=== PATIENT | male | born 1975 | race Caucasian/White ===

== ENCOUNTER 2017-03-29 18:06 | Observation (INO) ==
[2017-03-29 18:55] LABS: Basophils # 0.1 K/mcL (0.0-0.2); Basophils % 0.6 %; Hematocrit 52.1 % (37.5-50.1); Hemoglobin 17.1 g/dL (12.9-16.9); Immature Granulocytes % 0.3 % (0-4); Lymphocytes # 2.1 K/mcL (0.6-4.6); Lymphocytes % 22.8 %; Mean Corpuscular HGB Conc 32.8 g/dL (31.6-35.5); Mean Corpuscular Volume 82.2 fL (83.0-100.0); Mean Platelet Volume 9.9 fL (9.4-12.4); Monocytes # 0.5 K/mcL (0.0-1.3); Monocytes % 5.1 %; Neutrophils # 6.6 K/mcL (1.6-8.9); Platelet Count 260 K/mcL (140-400); Red Blood Count 6.34 M/mcL (4.19-5.50); Red Cell Distribution Width 13.7 % (11.5-14.5); Segmented Neutrophils % 71.2 %
[2017-03-29 19:07] LABS: Bilirubin,Urine Negative (Negative); Blood,Urine Moderate (Negative); Color,Urine Yellow (Yellow); Glucose,Urine (UA) 100 mg/dL (Normal); Ketones,Urine Negative (Negative); Leukocyte Esterase,Urine Negative (Negative); Nitrite,Urine Negative (Negative); Protein,Urine >=1000 mg/dL (Neg-Trace); Specific Gravity,Urine 1.026 (1.010-1.025); Urobilinogen,Urine Normal (Normal)
[2017-03-29 19:08] LABS: Bacteria,Urine None Seen per hpf (None-Few); Hyaline Casts,Urine None Seen per lpf (None-Few); Squamous Epithelial Cell,Urine Many per lpf (None-Few)
[2017-03-29 19:08] LABS: BUN/Creatinine Ratio 14 (6-26); Blood Urea Nitrogen 17 mg/dL (8-26); Calcium 9.5 mg/dL (8.6-10.8); Carbon Dioxide 23 mEq/L (19-29); Chloride 107 mEq/L (98-109); Glucose 137 mg/dL (70-99); Osmolality,Calculated 292 (280-300); Sodium 139 mEq/L (136-145); eGFR For African Americans > 60 (> 60); eGFR For Non-African Americans > 60 (> 60)
[2017-03-29 19:09] LABS: Acetaminophen < 1.0 mcg/mL (10-30); Ethanol < 10 mg/dL (0-10); Salicylate < 5.0 mg/dL (15-30)
[2017-03-29 19:10] LABS: Clarity,Urine Slightly Hazy (Clear)
[2017-03-29 19:15] LABS: Amphetamine Screen,Urine Negative ng/mL (Cutoff=1000); Barbiturate Screen,Urine Negative ng/mL (Cutoff=200); Benzodiazepines Screen,Urine Negative ng/mL (Cutoff=200); Cannabinoid Screen,Urine Negative ng/mL (Cutoff = 50); Cocaine Screen,Urine Negative ng/mL (Cutoff= 300); Opiate Screen,Urine Negative ng/mL (Cutoff=300); Phencyclidine Screen,Urine Negative ng/mL (Cutoff=25)
--- NOTE | 2017-03-29 19:17 | Emergency Department Note ---
Disposition Clinical Impression: Suicidal ideation Depression Qualifiers: Depression Type: unspecified Qualified Code(s): F32.9 - Major depressive disorder, single episode, unspecified Disposition: Admitted As Inpatient Condition: Fair Time of Disposition: 01:54 Psych HPI - General Chief Complaint: ED Psychiatric Symptoms Stated Complaint: SI Time Seen by Provider: 03/29/17 18:36 Source: patient Nursing Notes Reviewed: Yes Vital Signs Reviewed: Yes - History of Present Illness HPI Narrative: 41-year-old male complains of deficits suicide. He states earlier today he was arguing with his and afterwards took a pocket knife to his neck. He mentions a history of bipolar and depression admits to not taking his medications for this. He sees a mental health provider at [place]. He denies any auditory or visual hallucinations, or homicidal ideations. - Related Data Home Medications Medication Instructions Recorded Confirmed Albuterol Neb [AccuNeb] 1.25 mg IH PRN PRN 07/21/15 03/29/17 Albuterol Sulfate [Ventolin Hfa] 18 gm IH PRN PRN 07/21/15 03/29/17 Beclomethasone Diprop 40mcg [Qvar 2 puff IH BID 07/21/15 03/29/17 40 mcg] Folic Acid 1 mg PO DAILY 07/21/15 03/29/17 Lisinopril [Zestril] 40 mg PO DAILY 07/21/15 03/29/17 Loratadine [Claritin] 10 mg PO DAILY 07/21/15 03/29/17 Acetaminophen [Tylenol] 325 mg PO TID 04/12/16 03/29/17 Amitriptyline HCl 200 mg PO HS 04/12/16 03/29/17 Doxycycline 100 mg PO DAILY 04/12/16 03/29/17 Insulin ASPART [Novolog Flexpen] 0 unit SQ ACHS 04/12/16 03/29/17 Insulin Glargine,Hum.rec.anlog 60 unit SQ HS 04/12/16 03/29/17 [Lantus Solostar] Methocarbamol [Robaxin] 500 mg PO BID PRN 04/12/16 03/29/17 Metoprolol [Lopressor] 50 mg PO BID 04/12/16 03/29/17 Mycophenolate Mofetil [Cellcept] 1,000 mg PO TID 04/12/16 03/29/17 OxyCODONE/APAP 10/325 [Percocet 1 each PO QID PRN 04/12/16 03/29/17 10/325 MG] traMADol [Ultram] 50 - 100 mg PO TID PRN 04/12/16 03/29/17 Cholecalciferol (Vitamin D3) 1,000 unit PO DAILY 03/29/17 03/29/17 [Vitamin D3] Divalproex Sodium [Depakote] 500 mg PO BID 03/29/17 03/29/17 Fluticasone Propionate Nasal 2 spray NS DAILY 03/29/17 03/29/17 [Flonase] Furosemide [Lasix] 20 mg PO BID PRN 03/29/17 03/29/17 Lovastatin 80 mg PO HS 03/29/17 03/29/17 Sertraline [Zoloft] 100 mg PO DAILY 03/29/17 03/29/17 SitaGLIPtin [Januvia] 100 mg PO DAILY 03/29/17 03/29/17 Sulfamethoxazole/Trimeth DS 1 tab PO MOWEFR 03/29/17 03/29/17 [Bactrim DS] Trazodone HCl 100 - 200 mg PO HS 03/29/17 03/29/17 hydrOXYzine pamoate [Hydroxyzine 25 mg PO BID 03/29/17 03/29/17 Pamoate] Allergies Allergy/AdvReac Type Severity Reaction Status Date / Time No Known Allergies Allergy Verified 12/24/16 01:27 All systems ED: reviewed and negative except as stated. Constitutional: Denies: fever, chills Eyes: Denies: eye pain ENT ED: Denies: ear pain Cardiovascular: Denies: chest pain Respiratory: Denies: dyspnea Gastrointestinal: Denies: abdominal pain Genitourinary: Denies: dysuria Musculoskeletal: Denies: back pain Integumentary: Denies: rash Neurological: Denies: headache Psychiatric: Reports: as per HPI, depression, suicidal thoughts. Denies: homicidal thoughts, auditory hallucinations, visual hallucinations Endocrine: Denies: fatigue Hematological/Lymphatic: Denies: easy bleeding Allergic/Immunologic: Denies: facial swelling Past Medical History - Past Medical History Medical history: Reports: arthritis, CHF, diabetes, hypertension Surgical history: Reports: appendectomy Psychiatric history: Reports: anxiety, depression - Social History Smoking Status: Never smoker Smokeless Tobacco Status: Yes Alcohol use: Reports: none Drug use: Reports: none Physical Exam - General Limitations: no limitations General appearance: alert, in no apparent distress - Head Head exam: normocephalic - Eye Eye exam: Present: EOMI - Neck Neck exam: Present: full ROM - Chest Chest inspection: Present: symmetric chest wall rise - Respiratory Respiratory exam: Absent: respiratory distress - Cardiovascular Cardiovascular exam: Present: regular rate, normal rhythm - Abdominal Exam Abdominal exam: Present: soft, Non-Tender - Extremities Exam Extremities exam: Present: normal inspection, full ROM - Back Exam Back exam: Present: normal inspection, full ROM - Neurological Exam Neurological exam: Present: alert, oriented X3 - Psychiatric Psychiatric exam: Present: normal affect, normal mood - Skin Skin exam: Present: warm, dry, intact, normal color. Absent: rash, cyanosis, diaphoresis Course Course Narrative: 41-year-old male presents after suicide attempt that occurred just prior to his arrival.. On examination he is in no acute distress. Nontoxic. He does have some dried blood on his anterior neck however no active bleeding or visible lacerations are seen. Does have a history of bipolar and depression. He currently denies suicidal ideation. He admits to being noncompliant with his medications. He mentions a history of CHF, diabetes, heart disease. Denies any chest pain, shortness of breath, recent illness. Workup initiated for 1A evaluation. - Reevaluation(s) Reevaluation #1: Patient was medically cleared and evaluated by behavioral health staff. I did discuss patient with 1A nurse Deyanira who had talked to on-call psychiatrist Dr. Lester. Patient will be admitted to 1A service for observation. Patient was agreeable to this. Patient has been pink slipped. Vital stable. Time: 01:54 Vital Signs Temperature 98 F 03/29/17 18:11 Pulse Rate 117 03/29/17 18:11 Respiratory Rate 18 03/29/17 18:11 Blood Pressure 189/106 03/29/17 18:11 O2 Sat by Pulse Oximetry 95 03/29/17 18:11 Temperature 97.8 F 03/30/17 20:09 Pulse Rate 80 03/30/17 20:09 Respiratory Rate 16 03/30/17 20:09 Blood Pressure 152/86 03/30/17 20:09 O2 Sat by Pulse Oximetry 95 03/29/17 18:11 Oxygen Delivery Oxygen Delivery Room Air Psych - Lab Data Result diagrams: 03/29/17 18:48 03/29/17 18:48 Lab Results 03/29/17 03/29/17 03/29/17 Range/Units 18:48 18:48 18:55 WBC 9.3 (4.3-11.1) K/mcL RBC 6.34 H (4.19-5.50) M/mcL Hgb 17.1 H (12.9-16.9) g/dL Hct 52.1 H (37.5-50.1) % MCV 82.2 L (83.0-100.0) fL MCH 27.0 L (28.0-33.3) pg MCHC 32.8 (31.6-35.5) g/dL RDW 13.7 (11.5-14.5) % Plt Count 260 (140-400) K/mcL MPV 9.9 (9.4-12.4) fL Immature Gran % 0.3 (0-4) % Seg Neutrophils % 71.2 % Lymphocytes % 22.8 % Monocytes % 5.1 % Eosinophils % 0.0 % Basophils % 0.6 % Neutrophils # 6.6 (1.6-8.9) K/mcL Lymphocytes # 2.1 (0.6-4.6) K/mcL Monocytes # 0.5 (0.0-1.3) K/mcL Eosinophils # 0.0 (0.0-0.6) K/mcL Basophils # 0.1 (0.0-0.2) K/mcL Sodium 139 (136-145) mEq/L Potassium 4.0 (3.5-4.5) mEq/L Chloride 107 (98-109) mEq/L Carbon Dioxide 23 (19-29) mEq/L BUN 17 (8-26) mg/dL Creatinine 1.22 (0.72-1.25) mg/dL Est GFR ( Amer) > 60 (> 60) Est GFR (Non-Af Amer) > 60 (> 60) BUN/Creatinine Ratio 14 (6-26) Glucose 137 H (70-99) mg/dL Calculated Osmolality 292 (280-300) Calcium 9.5 (8.6-10.8) mg/dL Urine Color Yellow (Yellow) Urine Clarity Slightly Hazy (Clear) Urine pH 6.0 (5.0-8.0) pH Units Ur Specific [place] 1.026 H (1.010-1.025) Urine Protein >=1000 H (Neg-Trace) mg/dL Urine Glucose (UA) 100 H (Normal) mg/dL Urine Ketones Negative (Negative) mg/dL Urine Blood Moderate H (Negative) Urine Nitrite Negative (Negative) Urine Bilirubin Negative (Negative) Urine Urobilinogen Normal (Normal) mg/dL Ur Leukocyte Esterase Negative (Negative) Urine Microscopic RBC 5-15 H (0-3) per hpf Urine Microscopic WBC 5-15 H (0-3) per hpf Ur Squamous Epith Cells Many H (None-Few) per lpf Urine Bacteria None Seen (None-Few) per hpf Hyaline Casts None Seen (None-Few) per lpf Salicylates < 5.0 L (15-30) mg/dL Urine Opiates Screen (Phsvsz=095) ng/mL Acetaminophen < 1.0 L (10-30) mcg/mL Ur Barbiturates Screen (Bzahpj=041) ng/mL Valproic Acid < 2.00 L (50-100) mcg/mL Ur Phencyclidine Scrn (Cutoff=25) ng/mL Ur Amphetamines Screen (Kmloge=9155) ng/mL U Benzodiazepines Scrn (Lqepbm=573) ng/mL Urine Cocaine Screen (Cutoff= 300) ng/mL U Marijuana (THC) Screen (Cutoff = 50) ng/mL Ethyl Alcohol < 10 (0-10) mg/dL 03/29/17 Range/Units 18:55 WBC (4.3-11.1) K/mcL RBC (4.19-5.50) M/mcL Hgb (12.9-16.9) g/dL Hct (37.5-50.1) % MCV (83.0-100.0) fL MCH (28.0-33.3) pg MCHC (31.6-35.5) g/dL RDW (11.5-14.5) % Plt Count (140-400) K/mcL MPV (9.4-12.4) fL Immature Gran % (0-4) % Seg Neutrophils % % Lymphocytes % % Monocytes % % Eosinophils % % Basophils % % Neutrophils # (1.6-8.9) K/mcL Lymphocytes # (0.6-4.6) K/mcL Monocytes # (0.0-1.3) K/mcL Eosinophils # (0.0-0.6) K/mcL Basophils # (0.0-0.2) K/mcL Sodium (136-145) mEq/L Potassium (3.5-4.5) mEq/L Chloride (98-109) mEq/L Carbon Dioxide (19-29) mEq/L BUN (8-26) mg/dL Creatinine (0.72-1.25) mg/dL Est GFR ( Amer) (> 60) Est GFR (Non-Af Amer) (> 60) BUN/Creatinine Ratio (6-26) Glucose (70-99) mg/dL Calculated Osmolality (280-300) Calcium (8.6-10.8) mg/dL Urine Color (Yellow) Urine Clarity (Clear) Urine pH (5.0-8.0) pH Units Ur Specific [place] (1.010-1.025) Urine Protein (Neg-Trace) mg/dL Urine Glucose (UA) (Normal) mg/dL Urine Ketones (Negative) mg/dL Urine Blood (Negative) Urine Nitrite (Negative) Urine Bilirubin (Negative) Urine Urobilinogen (Normal) mg/dL Ur Leukocyte Esterase (Negative) Urine Microscopic RBC (0-3) per hpf Urine Microscopic WBC (0-3) per hpf Ur Squamous Epith Cells (None-Few) per lpf Urine Bacteria (None-Few) per hpf Hyaline Casts (None-Few) per lpf Salicylates (15-30) mg/dL Urine Opiates Screen Negative (Uomlql=916) ng/mL Acetaminophen (10-30) mcg/mL Ur Barbiturates Screen Negative (Avmlyl=289) ng/mL Valproic Acid (50-100) mcg/mL Ur Phencyclidine Scrn Negative (Cutoff=25) ng/mL Ur Amphetamines Screen Negative (Tvymhr=1390) ng/mL U Benzodiazepines Scrn Negative (Vvlwap=843) ng/mL Urine Cocaine Screen Negative (Cutoff= 300) ng/mL U Marijuana (THC) Screen Negative (Cutoff = 50) ng/mL Ethyl Alcohol (0-10) mg/dL Psychiatric Medical Clearance - Medical Clearance Checklist Medical History: No Social History Section defined Current Vitals: Last Vital Signs Temp 97.8 F 03/30/17 20:09 Pulse 80 03/30/17 20:09 Resp 16 03/30/17 20:09 BP 152/86 03/30/17 20:09 Pulse Ox 95 03/29/17 18:11 Abnormal Labs: Abnormal lab results RBC 6.34 M/mcL (4.19-5.50) H 03/29/17 18:48 Hgb 17.1 g/dL (12.9-16.9) H 03/29/17 18:48 Hct 52.1 % (37.5-50.1) H 03/29/17 18:48 MCV 82.2 fL (83.0-100.0) L 03/29/17 18:48 MCH 27.0 pg (28.0-33.3) L 03/29/17 18:48 Glucose 137 mg/dL (70-99) H 03/29/17 18:48 Ur Specific [place] 1.026 (1.010-1.025) H 03/29/17 18:55 Urine Protein >=1000 mg/dL (Neg-Trace) H 03/29/17 18:55 Urine Glucose (UA) 100 mg/dL (Normal) H 03/29/17 18:55 Urine Blood Moderate (Negative) H 03/29/17 18:55 Urine Microscopic RBC 5-15 per hpf (0-3) H 03/29/17 18:55 Urine Microscopic WBC 5-15 per hpf (0-3) H 03/29/17 18:55 Ur Squamous Epith Cells Many per lpf (None-Few) H 03/29/17 18:55 Salicylates < 5.0 mg/dL (15-30) L 03/29/17 18:48 Acetaminophen < 1.0 mcg/mL (10-30) L 03/29/17 18:48 Valproic Acid < 2.00 mcg/mL (50-100) L 03/29/17 18:48 Attestation Statement - Attestation Attestation: I, Vinny Burrows, examined this patient and my medical decision-making was reviewed with the BUSINESS OBJECTS CONSULTANT/PA/Advanced Practice Nurse/Resident Physician. I agree with the documented findings, disposition and treatment plan as described except to the extent set forth below. Patient evaluated in the emergency department. Patient was medically cleared. He is seen by behavioral health and found to require further evaluation with inpatient psychiatric care. Patient is comfortable with this plan.
[2017-03-29 19:27] LABS: Valproate < 2.00 mcg/mL (50-100)
[2017-03-29] MEDS ORDERED: Haloperidol Lactate 5 MG/ML VIAL IM PRN (22:21)
[2017-03-29] MEDS ORDERED: hydrOXYzine pamoate 25 MG CAPSULE PO PRN (22:21)
[2017-03-29] MEDS ORDERED: Nicotine 2 MG GUM BC PRN (22:21)
[2017-03-29] MEDS ORDERED: Acetaminophen 325 MG TABLET PO PRN (22:21)
[2017-03-29] MEDS ORDERED: *HR* LORazepam 2 MG/ML VIAL IM PRN (22:21)
[2017-03-29] MEDS ORDERED: Mag Hydrox/Al Hydrox/Simeth 30 ML UDC PO PRN (22:21)
[2017-03-29] MEDS ORDERED: MOM Conc 10 ML UD.LIQ PO PRN (22:21)
[2017-03-29] MEDS ORDERED: traZODone 50 MG TABLET PO PRN (22:21)
[2017-03-29] MEDS ORDERED: *HR* LORazepam 1 MG TABLET PO PRN (22:21)
[2017-03-29] MEDS ORDERED: Albuterol Neb 1.25 MG/3 ML VIAL IH PRN (22:34)
[2017-03-29] MEDS ORDERED: *HR* OxyCODONE/APAP 10/325 TABLET PO PRN (22:34)
[2017-03-29] MEDS ORDERED: Methocarbamol 500 MG TABLET PO PRN (22:34)
[2017-03-29] MEDS ORDERED: Furosemide 20 MG TABLET PO PRN (22:34)
[2017-03-29] MEDS ORDERED: traMADol 50 MG TABLET PO PRN ×2 (22:34→23:15)
[2017-03-29] MEDS ORDERED: D5% in Water 1,000 ML IVC PRN (22:42)
[2017-03-29] MEDS ORDERED: *HR* Dextrose 50 % in Water (Syg) 50 ML SYRINGE IVP PRN (22:42)
[2017-03-29] MEDS ORDERED: Dextrose Gel 15 GM PO PRN ×2 (22:42)
[2017-03-29] MEDS: hydrOXYzine pamoate 25 MG CAPSULE PO SCH (23:44)
[2017-03-29] MEDS: Divalproex (12 HR) 500 MG TABLET PO SCH (23:44)
[2017-03-30] MEDS: Insulin LISPRO 300 UNITS/3 ML VIAL SQ SCH ×3 (08:56→16:48)
[2017-03-30] MEDS: Fluticasone Propionate Nasal 50 MCG/SPRAY BOTTLE NS SCH (09:37)
[2017-03-30] MEDS: hydrOXYzine pamoate 25 MG CAPSULE PO SCH ×2 (09:39→21:30)
[2017-03-30] MEDS: Doxycycline 100 MG CAPSULE PO SCH (09:39)
[2017-03-30] MEDS: Divalproex (12 HR) 500 MG TABLET PO SCH ×2 (09:39→21:32)
[2017-03-30] MEDS: *HR* SitaGLIPtin 100 MG TABLET PO SCH (09:39)
[2017-03-30] MEDS: Lisinopril 20 MG TABLET PO SCH (09:39)
[2017-03-30] MEDS: Cholecalciferol (D-3) 1,000 UNIT TABLET PO SCH (09:39)
[2017-03-30] MEDS: Loratadine 10 MG TABLET PO SCH (09:40)
[2017-03-30] MEDS: Folic Acid 1 MG TABLET PO SCH (09:40)
[2017-03-30] MEDS: Beclomethasone 40mcg MDI IH SCH ×2 (11:21→22:40)
--- NOTE | 2017-03-30 13:55 | Psychiatry History & Physical ---
Date of Encounter: 03/30/17 Time of Encounter: 13:10 History of Present Illness Patient Stated Chief Complaint: i wanted to kill myself Medicare Admission Attestation: For traditional Medicare patients the provided hospital inpatient services are reasonable and necessary and in the case of services not specified as inpatient -only under 42 CFR 419.22 (n), that they are appropriately provided as inpatient services in accordance 42 CFR 412.3. For Critical Access Hospital the patient may reasonably be expected to be discharged or transferred to a hospital within 96 hours after admission to the Critical Access Hospital. Admitted From: Emergency Dept Plans for Post Hospital Care: Home History of Present Illness: Mr. Mendez is a 41 year old White male evaluated today , admitted from ER for Suicidal attempt , too pocket knife to his neck , no cuts . states as soon as he did this he realized what he is doing , called 911. He has history of bipolar and depression, patient has been noncompliant with his medications since last 4 days and was very stressed as his daughter got on Tuesday, he got in argument with his and and threatened to hurt himself. Patient gives history of mood swings and irritability ,mind racing, anger, anxiety ,panic attacks and insomnia and denies psychosis denies any depressive symptomatology, patient has no prior suicidal ideation or attempts. He at present denies any suicide ideations and states he will never do it , he is not sleeping well, he is anxious , denies depression. Past psychiatric history patient is under the care of outpatient psychiatrist Kaitlyn Livingston and has appointment next week he is in treatment since last 7 years he has no prior suicidal ideations or attempts, no psychiatric inpatient hospitalizations no, no drug history, and history of noncompliance. Family history significant for bipolar patient's mother Brother sisters are diagnosed with bipolar, brother has attempted suicide 6-7 times and mother has attempted suicide also. Social history patient lives with his family he has 4 children on disability no legal issues he used to work as a truck mechanic apprentice His medications are Depakote 1000 mg, Elavil 200 mg, trazodone 100 mg, Zoloft 100 mg. Patient's Depakote level was 0.2 he agreed he has not been taking his medications. plan will increase depakote and repeat levels, continue all other medications. Past Med Surg Social Fam HX - Past Medical History Medical history: arthritis, CHF, diabetes, hypertension - Past Psychiatric History Psychiatric history: Reports: bipolar, depression Family psychiatric history: Yes Family History of Suicide: Attempted - Past Surgical History Surgical History: appendectomy - Social History Smoking Status: Never smoker Smokeless Tobacco Status: Yes Alcohol use: none Drug use: none - Family History Mother Hx Family Medical Disorders: No Father Hx Family Cardiac Disorders: Yes (CHF) Hx Family Genitourinary Disorders: Yes (kidney disease) Hx Family Endocrine Disorder: Yes (DM) Medications & Allergies Albuterol Neb [AccuNeb] 1.25 mg IH PRN PRN 07/21/15 [History] Albuterol Sulfate [Ventolin Hfa] 18 gm IH PRN PRN 07/21/15 [History] Beclomethasone Diprop 40mcg [Qvar 40 mcg] 2 puff IH BID 07/21/15 [History] Folic Acid 1 mg PO DAILY 07/21/15 [History] Lisinopril [Zestril] 40 mg PO DAILY 07/21/15 [History] Loratadine [Claritin] 10 mg PO DAILY 07/21/15 [History] Acetaminophen [Tylenol] 325 mg PO TID 04/12/16 [History] Amitriptyline HCl 200 mg PO HS 04/12/16 [History] Doxycycline 100 mg PO DAILY 04/12/16 [History] Insulin ASPART [Novolog Flexpen] 0 unit SQ ACHS 04/12/16 [History] Insulin Glargine,Hum.rec.anlog [Lantus Solostar] 60 unit SQ HS 04/12/16 [History ] Methocarbamol [Robaxin] 500 mg PO BID PRN 04/12/16 [History] Metoprolol [Lopressor] 50 mg PO BID 04/12/16 [History] Mycophenolate Mofetil [Cellcept] 1,000 mg PO TID 04/12/16 [History] OxyCODONE/APAP 10/325 [Percocet 10/325 MG] 1 each PO QID PRN 04/12/16 [History] traMADol [Ultram] 50 - 100 mg PO TID PRN 04/12/16 [History] Cholecalciferol (Vitamin D3) [Vitamin D3] 1,000 unit PO DAILY 03/29/17 [History] Divalproex Sodium [Depakote] 500 mg PO BID 03/29/17 [History] Fluticasone Propionate Nasal [Flonase] 2 spray NS DAILY 03/29/17 [History] Furosemide [Lasix] 20 mg PO BID PRN 03/29/17 [History] Lovastatin 80 mg PO HS 03/29/17 [History] Sertraline [Zoloft] 100 mg PO DAILY 03/29/17 [History] SitaGLIPtin [Januvia] 100 mg PO DAILY 03/29/17 [History] Sulfamethoxazole/Trimeth DS [Bactrim DS] 1 tab PO MOWEFR 03/29/17 [History] Trazodone HCl 100 - 200 mg PO HS 03/29/17 [History] hydrOXYzine pamoate [Hydroxyzine Pamoate] 25 mg PO BID 03/29/17 [History] Allergies No Known Allergies Allergy (Verified 12/24/16 01:27) Review of Systems Psychiatric: Reports: anxiety, abnormal sleep pattern, irritability, mood swings , panic attacks Mental Status Exam Patient orientation: Yes Time, Yes Place Level of alertness: Alert Patient appearance: Appropriate Behavior: cooperative, anxious Psychomotor activity: Normal Eye contact: Maintains Eye Contact Mood description: Anxious Affect description: congruent with mood Speech pattern: Normal rate Speech volume: Normal Thought process: Circumstantial Thought content: Yes Intact Attention span: Unable to Sustain Attention Memory description: Grossly Intact Patient reliability: Reliable Historian Intelligence estimate: Average Judgment: Fair Insight: Partial Exam - HEENT Eye exam IM: Present: normal appearance ENT exam IM: Present: normal exam - Neurological Neurological exam IM: Present: CN II-XII intact (pt had physical in emergency room) - Extremities Extremities exam IM: Present: normal inspection - Skin Skin exam IM: Present: abrasion - Additional Information Additional Information: patient had complete physical in ER. Results - Vital Signs Vital signs: Temp Pulse Resp BP Pulse Ox 97.2 F L 85 18 139/97 95 03/30/17 09:00 03/30/17 09:00 03/30/17 09:00 03/30/17 09:00 03/29/17 18:11 - Labs Labs: Laboratory Last Values WBC 9.3 K/mcL (4.3-11.1) 03/29/17 18:48 RBC 6.34 M/mcL (4.19-5.50) H 03/29/17 18:48 Hgb 17.1 g/dL (12.9-16.9) H 03/29/17 18:48 Hct 52.1 % (37.5-50.1) H 03/29/17 18:48 MCV 82.2 fL (83.0-100.0) L 03/29/17 18:48 MCH 27.0 pg (28.0-33.3) L 03/29/17 18:48 MCHC 32.8 g/dL (31.6-35.5) 03/29/17 18:48 RDW 13.7 % (11.5-14.5) 03/29/17 18:48 Plt Count 260 K/mcL (140-400) 03/29/17 18:48 MPV 9.9 fL (9.4-12.4) 03/29/17 18:48 Immature Gran % 0.3 % (0-4) 03/29/17 18:48 Seg Neutrophils % 71.2 % 03/29/17 18:48 Lymphocytes % 22.8 % 03/29/17 18:48 Monocytes % 5.1 % 03/29/17 18:48 Eosinophils % 0.0 % 03/29/17 18:48 Basophils % 0.6 % 03/29/17 18:48 Neutrophils # 6.6 K/mcL (1.6-8.9) 03/29/17 18:48 Lymphocytes # 2.1 K/mcL (0.6-4.6) 03/29/17 18:48 Monocytes # 0.5 K/mcL (0.0-1.3) 03/29/17 18:48 Eosinophils # 0.0 K/mcL (0.0-0.6) 03/29/17 18:48 Basophils # 0.1 K/mcL (0.0-0.2) 03/29/17 18:48 Sodium 139 mEq/L (136-145) 03/29/17 18:48 Potassium 4.0 mEq/L (3.5-4.5) 03/29/17 18:48 Chloride 107 mEq/L (98-109) 03/29/17 18:48 Carbon Dioxide 23 mEq/L (19-29) 03/29/17 18:48 BUN 17 mg/dL (8-26) 03/29/17 18:48 Creatinine 1.22 mg/dL (0.72-1.25) 03/29/17 18:48 Est GFR ( Amer) > 60 (> 60) 03/29/17 18:48 Est GFR (Non-Af Amer) > 60 (> 60) 03/29/17 18:48 BUN/Creatinine Ratio 14 (6-26) 03/29/17 18:48 Glucose 137 mg/dL (70-99) H 03/29/17 18:48 POC Glucose 135 (58-89) H 03/30/17 11:17 Calculated Osmolality 292 (280-300) 03/29/17 18:48 Calcium 9.5 mg/dL (8.6-10.8) 03/29/17 18:48 Urine Color Yellow (Yellow) 03/29/17 18:55 Urine Clarity Slightly Hazy (Clear) 03/29/17 18:55 Urine pH 6.0 pH Units (5.0-8.0) 03/29/17 18:55 Ur Specific [place] 1.026 (1.010-1.025) H 03/29/17 18:55 Urine Protein >=1000 mg/dL (Neg-Trace) H 03/29/17 18:55 Urine Glucose (UA) 100 mg/dL (Normal) H 03/29/17 18:55 Urine Ketones Negative mg/dL (Negative) 03/29/17 18:55 Urine Blood Moderate (Negative) H 03/29/17 18:55 Urine Nitrite Negative (Negative) 03/29/17 18:55 Urine Bilirubin Negative (Negative) 03/29/17 18:55 Urine Urobilinogen Normal mg/dL (Normal) 03/29/17 18:55 Ur Leukocyte Esterase Negative (Negative) 03/29/17 18:55 Urine Microscopic RBC 5-15 per hpf (0-3) H 03/29/17 18:55 Urine Microscopic WBC 5-15 per hpf (0-3) H 03/29/17 18:55 Ur Squamous Epith Cells Many per lpf (None-Few) H 03/29/17 18:55 Urine Bacteria None Seen per hpf (None-Few) 03/29/17 18:55 Hyaline Casts None Seen per lpf (None-Few) 03/29/17 18:55 Salicylates < 5.0 mg/dL (15-30) L 03/29/17 18:48 Urine Opiates Screen Negative ng/mL (Ugzmsz=621) 03/29/17 18:55 Acetaminophen < 1.0 mcg/mL (10-30) L 03/29/17 18:48 Ur Barbiturates Screen Negative ng/mL (Janjtc=875) 03/29/17 18:55 Valproic Acid < 2.00 mcg/mL (50-100) L 03/29/17 18:48 Ur Phencyclidine Scrn Negative ng/mL (Cutoff=25) 03/29/17 18:55 Ur Amphetamines Screen Negative ng/mL (Mtoomg=6366) 03/29/17 18:55 U Benzodiazepines Scrn Negative ng/mL (Yuyyzf=488) 03/29/17 18:55 Urine Cocaine Screen Negative ng/mL (Cutoff= 300) 03/29/17 18:55 U Marijuana (THC) Screen Negative ng/mL (Cutoff = 50) 03/29/17 18:55 Ethyl Alcohol < 10 mg/dL (0-10) 03/29/17 18:48 Assessment and Plan (1) Bipolar 1 disorder, depressed Current visit: Yes Status: Acute Plan: Admit inpatient for safety and stabilization, Close observation, Suicide Precautions per unit protocol Risks, benefits, side effects, alternatives discussed w/pt: Yes Patient agreeable to treatment: Yes Plans for Post Hospital Care: Home
[2017-03-30] MEDS ORDERED: Insulin LISPRO 300 UNITS/3 ML VIAL SQ SCH (21:00)
[2017-03-30] MEDS ORDERED: Sulfamethoxazole/Trimeth DS 1 EACH TABLET PO SCH (22:34)
[2017-03-31] MEDS: Fluticasone Propionate Nasal 50 MCG/SPRAY BOTTLE NS SCH (08:03)
[2017-03-31] MEDS: Divalproex (12 HR) 500 MG TABLET PO SCH (08:04)
[2017-03-31] MEDS: hydrOXYzine pamoate 25 MG CAPSULE PO SCH (08:04)
[2017-03-31] MEDS: Doxycycline 100 MG CAPSULE PO SCH (08:04)
[2017-03-31] MEDS: Lisinopril 20 MG TABLET PO SCH (08:04)
[2017-03-31] MEDS: *HR* SitaGLIPtin 100 MG TABLET PO SCH (08:04)
[2017-03-31] MEDS: Cholecalciferol (D-3) 1,000 UNIT TABLET PO SCH (08:04)
[2017-03-31] MEDS: Folic Acid 1 MG TABLET PO SCH (08:05)
[2017-03-31] MEDS: Loratadine 10 MG TABLET PO SCH (08:05)
[2017-03-31] MEDS: Insulin LISPRO 300 UNITS/3 ML VIAL SQ SCH ×2 (08:17→11:16)
[2017-03-31] MEDS: Beclomethasone 40mcg MDI IH SCH (09:07)
[2017-03-31 11:52] VITALS: BP 121/86
--- NOTE | 2017-03-31 14:24 | Discharge Summary ---
Date of Encounter: 03/31/17 Time of Encounter: 14:10 Diagnosis - Discharge Diagnosis (1) Bipolar 1 disorder, depressed Status: Acute Medications - Discharge Medications Albuterol Neb [AccuNeb] 1.25 mg IH PRN PRN 07/21/15 [History] Albuterol Sulfate [Ventolin Hfa] 18 gm IH PRN PRN 07/21/15 [History] Beclomethasone Diprop 40mcg [Qvar 40 mcg] 2 puff IH BID 07/21/15 [History] Folic Acid 1 mg PO DAILY 07/21/15 [History] Lisinopril [Zestril] 40 mg PO DAILY 07/21/15 [History] Loratadine [Claritin] 10 mg PO DAILY 07/21/15 [History] Acetaminophen [Tylenol] 325 mg PO TID 04/12/16 [History] Amitriptyline HCl 200 mg PO HS 04/12/16 [History] Doxycycline 100 mg PO DAILY 04/12/16 [History] Insulin ASPART [Novolog Flexpen] 0 unit SQ ACHS 04/12/16 [History] Insulin Glargine,Hum.rec.anlog [Lantus Solostar] 60 unit SQ HS 04/12/16 [History ] Methocarbamol [Robaxin] 500 mg PO BID PRN 04/12/16 [History] Metoprolol [Lopressor] 50 mg PO BID 04/12/16 [History] Mycophenolate Mofetil [Cellcept] 1,000 mg PO TID 04/12/16 [History] OxyCODONE/APAP 10/325 [Percocet 10/325 MG] 1 each PO QID PRN 04/12/16 [History] traMADol [Ultram] 50 - 100 mg PO TID PRN 04/12/16 [History] Cholecalciferol (Vitamin D3) [Vitamin D3] 1,000 unit PO DAILY 03/29/17 [History] Divalproex Sodium [Depakote] 500 mg PO BID 03/29/17 [History] Fluticasone Propionate Nasal [Flonase] 2 spray NS DAILY 03/29/17 [History] Furosemide [Lasix] 20 mg PO BID PRN 03/29/17 [History] Lovastatin 80 mg PO HS 03/29/17 [History] Sertraline [Zoloft] 100 mg PO DAILY 03/29/17 [History] SitaGLIPtin [Januvia] 100 mg PO DAILY 03/29/17 [History] Sulfamethoxazole/Trimeth DS [Bactrim DS] 1 tab PO MOWEFR 03/29/17 [History] Trazodone HCl 100 - 200 mg PO HS 03/29/17 [History] hydrOXYzine pamoate [Hydroxyzine Pamoate] 25 mg PO BID 03/29/17 [History] Allergies No Known Allergies Allergy (Verified 12/24/16 01:27) Provider Date of admission: 03/29/17 22:03 Primary care physician: PCP NO Assessment and Plan - Patient/Caregiver Discharge Instructions Diet: diabetic diet - Follow up Plan Follow up with: [facility] [Outside] - 04/06/17 10:00 am (The above appointment is Kaitlyn Livingston CNP, for outpatient psychiatric assessment and medication management. Kaitlyn will also make a referral for you to see the counselor in the office, Marian Obrien.) Disposition: Home, Self-Care Hospital Course Hospital course: Mr. Mendez is a 41 year old male , admitted to inpatient from ER. patient had threathened to hurt self, called 911 and he as per him immediately realized what he has done, he denied suicidal ideations in ER, was placed in observation for Si. He has h/o Bipolar and has out patient psychiatrist and had been compliant with meds till last Tuesday as daughter getting and he was very busy and didnot take his meds. he has been denying any suicidal ideations and has no plan to hurt self, states i have my kids and grandson to live for. he has been very stressed secondary to wedding and no meds , he got angry after argument with his and he said those things. he has good support system , meds were renewed, Depakote dose increased and dep. level done today . plan to discharge patient home today with his family. he has psychiatrist arina . on 04/06/[address] Kaitlyn Livingston. Time spent discussing smoking cessation with patient: 3 to 10 minutes Does patient wish to continue nicotine replacement upon disc: No - Time Spent with Patient Total time spent providing and/or coordinating discharge services: Less than 30 minutes Quality - Multiple Antipsychotics Patient discharged on 2 or more antipsychotic medications: No Procedures - Procedures Procedures: Medication Management, Crisis Stabilization Mental Status Exam - Mental Status Exam Patient orientation: Yes Person, Yes Time, Yes Place Level of alertness: Alert Patient appearance: Appropriate Behavior: calm, cooperative Psychomotor activity: Normal Eye contact: Maintains Eye Contact Mood description: Euthymic/stable Affect description: congruent with mood Speech pattern: Normal rate Speech Volume: Normal Thought process: Intact Thought Content: Yes Intact Judgment: Good Insight: Full
== END 2017-03-31 15:55 | disposition home or self-care (01) ==
LOC: EMEROO 18:06 → 1ANU 18:06
PROVIDERS: ADMIT Psychiatry & Neurology Psychiatry; ATTEND Psychiatry & Neurology Psychiatry

== ENCOUNTER 2019-09-17 14:02 | Inpatient (IN) ==
[2019-09-17 16:35] LABS: Basophils # 0.1 K/mcL (0.0-0.2); Basophils % 0.6 %; Eosinophils % 0.1 %; Hematocrit 54.5 % (37.5-50.1); Hemoglobin 17.7 g/dL (12.9-16.9); Immature Granulocytes % 0.4 % (0-4); Lymphocytes # 2.3 K/mcL (0.6-4.6); Mean Corpuscular HGB Conc 32.5 g/dL (31.6-35.5); Mean Corpuscular Volume 92.4 fL (83.0-100.0); Mean Platelet Volume 9.9 fL (9.4-12.4); Monocytes # 0.5 K/mcL (0.0-1.3); Monocytes % 4.3 %; Neutrophils # 8.4 K/mcL (1.6-8.9); Platelet Count 258 K/mcL (140-400); Red Cell Distribution Width 13.9 % (11.5-14.5); Segmented Neutrophils % 74.6 %; White Blood Count 11.3 K/mcL (4.3-11.1)
[2019-09-17 16:53] LABS: Calcium 9.4 mg/dL (8.6-10.3); Potassium 4.8 mEq/L (3.5-5.1)
[2019-09-17] MEDS ORDERED: hydrALAZINE 10 MG TABLET PO PRN ×2 (17:27→18:46)
[2019-09-17] MEDS ORDERED: *HR* OxyCODONE/APAP 5/325 TABLET PO ONE (17:33)
[2019-09-17] MEDS ORDERED: 0.9 % Sodium Chloride 500 ML IVC ONE (17:34)
[2019-09-17] MEDS ORDERED: *HR* Dextrose 50 % in Water (Syg) 50 ML SYRINGE IVP PRN (18:39)
[2019-09-17] MEDS ORDERED: D5% in Water 1,000 ML IVC PRN (18:39)
[2019-09-17] MEDS ORDERED: Dextrose Gel 15 GM/37.5 ML TUBE PO PRN ×2 (18:39)
[2019-09-17] MEDS ORDERED: Naloxone 0.4 MG/ML INJ IVP PRN (18:43)
[2019-09-17] MEDS: hydrALAZINE 25 MG TABLET PO SCH (19:45)
[2019-09-17] MEDS: Lisinopril 20 MG TABLET PO SCH (20:42)
[2019-09-18] MEDS ORDERED: hydrALAZINE 25 MG TABLET PO SCH
[2019-09-18 01:07] LABS: Bilirubin,Urine Negative (Negative); Blood,Urine Small (Negative); Clarity,Urine Clear (Clear); Color,Urine Yellow (Yellow); Glucose,Urine (UA) Normal (Normal); Ketones,Urine Trace mg/dL (Negative); Leukocyte Esterase,Urine Negative (Negative); Nitrite,Urine Negative (Negative); Protein,Urine 100 mg/dL (Neg-Trace); Urobilinogen,Urine Normal (Normal)
[2019-09-18 01:10] LABS: Bacteria,Urine None Seen per hpf (None-Few); Hyaline Casts,Urine None Seen per lpf (None-Few); Squamous Epithelial Cell,Urine Many per lpf (None-Few); WBC,Urine 0-3 per hpf (0-3)
[2019-09-18] MEDS: hydrALAZINE 25 MG TABLET PO SCH ×4 (04:13→19:48)
[2019-09-18 05:40] LABS: Hematocrit 46.6 % (37.5-50.1); Mean Corpuscular Hemoglobin 29.7 pg (28.0-33.3); Mean Platelet Volume 9.8 fL (9.4-12.4); Platelet Count 222 K/mcL (140-400); Red Blood Count 5.18 M/mcL (4.19-5.50); Red Cell Distribution Width 13.7 % (11.5-14.5); White Blood Count 7.6 K/mcL (4.3-11.1)
[2019-09-18 05:43] LABS: Prothrombin Time 11.4 Seconds (9.4-12.1)
[2019-09-18 05:45] LABS: Hemoglobin 15.4 g/dL (12.9-16.9)
[2019-09-18 06:00] LABS: Calcium 8.5 mg/dL (8.6-10.3); Potassium 4.5 mEq/L (3.5-5.1)
[2019-09-18] MEDS ORDERED: hydrALAZINE 10 MG TABLET PO PRN (07:01)
[2019-09-18] MEDS: amLODIPine 5 MG TABLET PO SCH (08:37)
[2019-09-18] MEDS: Lisinopril 20 MG TABLET PO SCH ×2 (08:37→19:48)
[2019-09-18] MEDS ORDERED: amLODIPine 5 MG TABLET PO SCH (09:00)
[2019-09-18] MEDS ORDERED: Acetaminophen 325 MG TABLET PO PRN (15:18)
[2019-09-18] MEDS ORDERED: *HR* OxyCODONE/APAP 5/325 TABLET PO ONE (15:18)
[2019-09-18 21:06] LABS: Protein/Creatinine Ratio,Urine 2.96 mg/mg (0.00-0.20)
[2019-09-19 05:40] LABS: Basophils % 0.5 %; Hematocrit 45.8 % (37.5-50.1); Hemoglobin 15.1 g/dL (12.9-16.9); Immature Granulocytes % 0.3 % (0-4); Lymphocytes # 2.5 K/mcL (0.6-4.6); Lymphocytes % 32.3 %; Mean Corpuscular Hemoglobin 30.2 pg (28.0-33.3); Mean Corpuscular Volume 91.6 fL (83.0-100.0); Mean Platelet Volume 9.9 fL (9.4-12.4); Monocytes # 0.4 K/mcL (0.0-1.3); Monocytes % 5.4 %; Neutrophils # 4.8 K/mcL (1.6-8.9); Platelet Count 207 K/mcL (140-400); Red Cell Distribution Width 13.7 % (11.5-14.5); Segmented Neutrophils % 61.5 %; White Blood Count 7.8 K/mcL (4.3-11.1)
[2019-09-19 05:59] LABS: Calcium 8.9 mg/dL (8.6-10.3); Potassium 3.9 mEq/L (3.5-5.1)
[2019-09-19 07:11] LABS: Estimated Average Glucose 108 mg/dl
[2019-09-19] MEDS: Cholecalciferol (D-3) 1,000 UNIT (25MCG) TABLET PO SCH (08:25)
[2019-09-19] MEDS: hydrALAZINE 25 MG TABLET PO SCH ×3 (08:25→20:26)
[2019-09-19] MEDS: Lisinopril 20 MG TABLET PO SCH ×2 (08:25→20:27)
[2019-09-19] MEDS: amLODIPine 5 MG TABLET PO SCH (08:25)
[2019-09-19 10:37] LABS: Complement C3 113 mg/dL (87-200)
[2019-09-20 06:19] LABS: Calcium 9.2 mg/dL (8.6-10.3); Potassium 4.3 mEq/L (3.5-5.1)
[2019-09-20] MEDS: amLODIPine 5 MG TABLET PO SCH (07:38)
[2019-09-20] MEDS: Cholecalciferol (D-3) 1,000 UNIT (25MCG) TABLET PO SCH (07:38)
[2019-09-20] MEDS: hydrALAZINE 25 MG TABLET PO SCH ×3 (07:38→20:36)
[2019-09-20] MEDS: Lisinopril 20 MG TABLET PO SCH ×2 (07:38→20:36)
[2019-09-20] MEDS: carvediloL 6.25 MG TABLET PO SCH (17:03)
[2019-09-21 06:08] LABS: Calcium 8.7 mg/dL (8.6-10.3); Potassium 4.1 mEq/L (3.5-5.1)
[2019-09-21] MEDS: amLODIPine 5 MG TABLET PO SCH (07:47)
[2019-09-21] MEDS: Lisinopril 20 MG TABLET PO SCH ×2 (07:47→21:53)
[2019-09-21] MEDS: Cholecalciferol (D-3) 1,000 UNIT (25MCG) TABLET PO SCH (07:47)
[2019-09-21] MEDS: hydrALAZINE 25 MG TABLET PO SCH ×3 (07:47→21:53)
[2019-09-21] MEDS: carvediloL 6.25 MG TABLET PO SCH ×2 (07:47→16:54)
[2019-09-22 07:42] LABS: Basophils % 0.1 %; Eosinophils % 0.1 %; Hematocrit 44.1 % (37.5-50.1); Hemoglobin 15.2 g/dL (12.9-16.9); Immature Granulocytes % 0.7 % (0-4); Lymphocytes # 0.5 K/mcL (0.6-4.6); Lymphocytes % 3.8 %; Mean Corpuscular HGB Conc 34.5 g/dL (31.6-35.5); Mean Corpuscular Hemoglobin 30.2 pg (28.0-33.3); Mean Corpuscular Volume 87.7 fL (83.0-100.0); Mean Platelet Volume 10.7 fL (9.4-12.4); Monocytes # 0.4 K/mcL (0.0-1.3); Monocytes % 2.9 %; Neutrophils # 11.6 K/mcL (1.6-8.9); Platelet Count 226 K/mcL (140-400); Red Blood Count 5.03 M/mcL (4.19-5.50); Red Cell Distribution Width 14.1 % (11.5-14.5); Segmented Neutrophils % 92.4 %
[2019-09-22 07:45] LABS: White Blood Count 12.6 K/mcL (4.3-11.1)
[2019-09-22 07:47] VITALS: BP 137/76
[2019-09-22 08:01] LABS: Calcium 8.2 mg/dL (8.6-10.3); Potassium 4.3 mEq/L (3.5-5.1)
[2019-09-22] MEDS: Cholecalciferol (D-3) 1,000 UNIT (25MCG) TABLET PO SCH (08:16)
[2019-09-22] MEDS: amLODIPine 5 MG TABLET PO SCH (08:16)
[2019-09-22] MEDS: hydrALAZINE 25 MG TABLET PO SCH (08:16)
[2019-09-22] MEDS: Lisinopril 20 MG TABLET PO SCH (08:17)
[2019-09-22] MEDS: carvediloL 6.25 MG TABLET PO SCH (08:17)
[2019-09-22 10:51] LABS: Serine Protease-3 Antibody 7 AU/mL (0-19)
== END 2019-09-22 08:44 | disposition home or self-care (01) | DRG 469 ==
LOC: EMEROOARM 14:02 → 2ANU 14:02 → SUATTDRO 18:25 → 2ANU 20:05
PROVIDERS: ADMIT Internal Medicine; ATTEND Internal Medicine

== ENCOUNTER 2022-03-15 12:38 | Inpatient (IN) ==
[2022-03-15 21:21] LABS: Basophils % 0.3 %; Hematocrit 21.5 % (37.5-50.1); Immature Granulocytes % 0.4 % (0-4); Lymphocytes % 13.1 %; Mean Corpuscular HGB Conc 32.6 g/dL (31.6-35.5); Mean Corpuscular Hemoglobin 29.4 pg (28.0-33.3); Mean Corpuscular Volume 90.3 fL (83.0-100.0); Mean Platelet Volume 9.8 fL (9.4-12.4); Monocytes # 0.7 K/mcL (0.0-1.3); Monocytes % 8.7 %; Neutrophils # 5.9 K/mcL (1.6-8.9); Platelet Count 135 K/mcL (140-400); Red Blood Count 2.38 M/mcL (4.19-5.50); Red Cell Distribution Width 14.6 % (11.5-14.5); Segmented Neutrophils % 77.5 %; White Blood Count 7.6 K/mcL (4.3-11.1)
[2022-03-15 21:42] LABS: Calcium 7.9 mg/dL (8.6-10.3); Carbon Dioxide 10 mEq/L (23-29); Chloride 96 mEq/L (98-107); Glucose 105 mg/dL (70-105); Potassium 4.9 mEq/L (3.5-5.1); Sodium 133 mEq/L (136-145)
[2022-03-15 22:08] LABS: Blood Urea Nitrogen 171 mg/dL (6-20); Osmolality,Calculated 333 (280-300)
[2022-03-16] MEDS ORDERED: *HR* OxyCODONE Immed Rel 5 MG TABLET PO PRN (02:48)
[2022-03-16] MEDS ORDERED: Melatonin 3 MG TABLET PO PRN (02:48)
[2022-03-16] MEDS ORDERED: *HR* HYDROcodone/Acet 5/325 mg TABLET PO PRN (02:48)
[2022-03-16] MEDS ORDERED: Acetaminophen 325 MG TABLET PO PRN (02:48)
[2022-03-16] MEDS ORDERED: Naloxone 0.4 MG/ML INJ IVP PRN (02:48)
[2022-03-16 02:56] LABS: Bacteria,Urine Few per hpf (None-Few); Bilirubin,Urine Negative (Negative); Blood,Urine Small (Negative); Clarity,Urine Clear (Clear); Color,Urine Colorless (Yellow); Glucose,Urine (UA) 50 mg/dL (Normal); Ketones,Urine Negative (Negative); Leukocyte Esterase,Urine Negative (Negative); Mucus,Urine Few per lpf (None-Few); Nitrite,Urine Negative (Negative); PH,Urine 6.5 pH Units (5.0-8.0); Protein,Urine >=300 mg/dL (Neg-Trace); Squamous Epithelial Cell,Urine Few per hpf (None-Few); Urobilinogen,Urine Normal (Normal); WBC,Urine 0-3 per hpf (0-3)
[2022-03-16 05:23] LABS: Basophils % 0.4 %; Hematocrit 21.2 % (37.5-50.1); Hemoglobin 6.8 g/dL (12.9-16.9); Immature Granulocytes % 0.4 % (0-4); Lymphocytes # 1.6 K/mcL (0.6-4.6); Lymphocytes % 20.9 %; Mean Corpuscular HGB Conc 32.1 g/dL (31.6-35.5); Mean Corpuscular Hemoglobin 29.4 pg (28.0-33.3); Mean Corpuscular Volume 91.8 fL (83.0-100.0); Mean Platelet Volume 10.2 fL (9.4-12.4); Monocytes # 0.6 K/mcL (0.0-1.3); Monocytes % 7.6 %; Neutrophils # 5.4 K/mcL (1.6-8.9); Platelet Count 132 K/mcL (140-400); Red Blood Count 2.31 M/mcL (4.19-5.50); Red Cell Distribution Width 14.7 % (11.5-14.5); Segmented Neutrophils % 70.7 %; White Blood Count 7.6 K/mcL (4.3-11.1)
[2022-03-16 05:46] LABS: Alanine Aminotransferase 5 Units/L (7-52); Albumin/Globulin Ratio 1.4 (1.1-2.2); Alkaline Phosphatase 28 Units/L (34-104); Aspartate Amino Transferase 4 Units/L (13-39); Bilirubin,Total 0.3 mg/dL (0.3-1.0); Carbon Dioxide 9 mEq/L (23-29); Chloride 96 mEq/L (98-107); Globulin 2.8 g/dL (2.4-3.5); Glucose 79 mg/dL (70-105); Magnesium 2.5 mg/dL (1.6-2.6); Potassium 4.7 mEq/L (3.5-5.1); Sodium 133 mEq/L (136-145); Total Protein 6.8 g/dL (6.4-8.9)
[2022-03-16 05:56] LABS: Blood Urea Nitrogen 178 mg/dL (6-20); Osmolality,Calculated 334 (280-300)
[2022-03-16] MEDS: Ondansetron ODT 4 MG TAB.RAPDIS SL PRN (07:52)
[2022-03-16] MEDS ORDERED: Nitroglycerin 0.4 MG TAB.SUBL SL PRN (15:05)
[2022-03-16] MEDS: hydrALAZINE 25 MG TABLET PO SCH (16:13)
[2022-03-16] MEDS: Metoprolol XL (24 HR) Succ 25 MG TAB.ER.24H PO SCH (16:13)
[2022-03-16] MEDS: amLODIPine 5 MG TABLET PO SCH (16:13)
[2022-03-16] MEDS: 0.9 % Sodium Chloride 1,000 ML IVC SCH ×2 (16:13→17:08)
[2022-03-16] MEDS ORDERED: D5% in Water 1,000 ML IVC PRN (16:21)
[2022-03-16] MEDS ORDERED: *HR* Dextrose 50 % in Water (Syg) 50 ML SYRINGE IVP PRN (16:21)
[2022-03-16] MEDS ORDERED: Dextrose Gel 15 GM/37.5 ML TUBE PO PRN ×2 (16:21)
[2022-03-16 16:59] LABS: Hematocrit 23.6 % (37.5-50.1); Hemoglobin 7.6 g/dL (12.9-16.9)
[2022-03-17] MEDS: Ondansetron ODT 4 MG TAB.RAPDIS SL PRN (05:31)
[2022-03-17] MEDS: Metoprolol XL (24 HR) Succ 25 MG TAB.ER.24H PO SCH (08:40)
[2022-03-17] MEDS: amLODIPine 5 MG TABLET PO SCH (08:40)
[2022-03-17] MEDS: hydrALAZINE 25 MG TABLET PO SCH (08:40)
[2022-03-17] MEDS: lisinopriL 20 MG TABLET PO SCH (08:40)
[2022-03-17] MEDS: Isosorbide MONOnitrate (24 HR) 30 MG TAB.ER.24H PO SCH (08:40)
[2022-03-17] MEDS ORDERED: 0.9 % Sodium Chloride 250 ML IVC PRN (09:32)
[2022-03-17] MEDS ORDERED: 0.9 % Sodium Chloride 2,000 ML PRIME SCH (09:45)
[2022-03-17 11:06] LABS: Hepatitis B Surface Antibody < 3.10 mIU/mL
[2022-03-17 11:16] LABS: Hepatitis B Surface Antigen Nonreactive (Nonreactive)
[2022-03-17 11:50] LABS: % Iron Saturation 22 % (20-55); Iron 41 mcg/dL (65-175); Transferrin 135 mg/dL (203-362)
[2022-03-17 12:07] LABS: Ferritin 549 ng/mL (20-250)
[2022-03-17 12:13] LABS: Folate 5.7 ng/mL (3.0-16.0)
[2022-03-18] MEDS: Ondansetron ODT 4 MG TAB.RAPDIS SL PRN (02:57)
[2022-03-18 06:40] LABS: Basophils % 0.4 %; Hematocrit 20.3 % (37.5-50.1); Hemoglobin 6.6 g/dL (12.9-16.9); Immature Granulocytes % 0.4 % (0-4); Lymphocytes # 0.6 K/mcL (0.6-4.6); Lymphocytes % 10.9 %; Mean Corpuscular HGB Conc 32.5 g/dL (31.6-35.5); Mean Corpuscular Hemoglobin 29.2 pg (28.0-33.3); Mean Corpuscular Volume 89.8 fL (83.0-100.0); Mean Platelet Volume 10.6 fL (9.4-12.4); Monocytes # 0.5 K/mcL (0.0-1.3); Monocytes % 9.5 %; Neutrophils # 4.4 K/mcL (1.6-8.9); Platelet Count 139 K/mcL (140-400); Red Blood Count 2.26 M/mcL (4.19-5.50); Red Cell Distribution Width 14.7 % (11.5-14.5); Segmented Neutrophils % 78.8 %; White Blood Count 5.6 K/mcL (4.3-11.1)
[2022-03-18 07:00] LABS: Potassium 3.9 mEq/L (3.5-5.1)
[2022-03-18] MEDS ORDERED: 0.9 % Sodium Chloride 250 ML IVC PRN (07:35)
[2022-03-18] MEDS ORDERED: Ethyl Chloride Spray Bottle (104 SPRAY/BOTTLE) TP PRN (07:35)
[2022-03-18] MEDS: lisinopriL 20 MG TABLET PO SCH (08:17)
[2022-03-18] MEDS: Isosorbide MONOnitrate (24 HR) 30 MG TAB.ER.24H PO SCH (08:17)
[2022-03-18] MEDS: hydrALAZINE 25 MG TABLET PO SCH (08:17)
[2022-03-18] MEDS: amLODIPine 5 MG TABLET PO SCH (08:17)
[2022-03-18] MEDS: Metoprolol XL (24 HR) Succ 25 MG TAB.ER.24H PO SCH (08:17)
[2022-03-18] MEDS ORDERED: Ondansetron ODT 4 MG TAB.RAPDIS SL ONE (08:35)
[2022-03-18 14:19] VITALS: O2SAT 100
[2022-03-18 15:41] VITALS: BP 161/83; PULSE 72; TEMP 98.4
== END 2022-03-18 18:05 | disposition home or self-care (01) | DRG 469 ==
LOC: EMEROOARM 12:38 → SUATTDRO 03-16 12:48 → 2NENU 03-16 12:48 → INTOOBSV 03-16 12:48 → 2NENU 03-16 13:52
PROVIDERS: ADMIT General Practice; ATTEND Internal Medicine